=== PATIENT | female | born 1985 | race African-American/Black ===

== ENCOUNTER 2017-05-12 14:12 | Inpatient (IN) | payer OTHER ==
[2017-05-12] MEDS ORDERED: OXYTOCIN 30 UNITS/LR 500 ML IV (15:00)
[2017-05-12] MEDS ORDERED: LIDOCAINE 1% (MPF) 30 ML INJ INJ (15:00)
[2017-05-12] MEDS ORDERED: CARBOPROST 250 MCG INJ IM (15:00)
[2017-05-12] MEDS ORDERED: MISOPROSTOL 200 MCG TAB PR (15:00)
[2017-05-12] MEDS ORDERED: IBUPROFEN 600 MG TAB PO (15:00)
[2017-05-12] MEDS: LACTATED RINGER'S 1,000 ML IV ×3 (15:16→22:53)
[2017-05-12] MEDS: AMPICILLIN 2 GM/NS (PMX) 100 ML IV (15:16)
[2017-05-12 15:43] LABS: ADD MAN DIFF? NO
[2017-05-12 15:45] LABS: WHITE BLOOD COUNT 7.9 10^3/ul (4.8-10.8)
[2017-05-12 15:45] LABS: BASOPHILS % 0.4 % (0.0-2.0); EOSINOPHILS % 0.4 % (0.0-7.0); HEMATOCRIT 34.3 % (37.0-47.0); HEMOGLOBIN 11.5 g/dl (12.0-16.0); LYMPHOCYTES # 2.1 10^3/ul (0.8-2.9); LYMPHOCYTES % 26.5 % (15.0-51.0); MEAN CORPUSCULAR HGB CONC 33.5 g/dl (32.0-37.0); MEAN CORPUSCULAR VOLUME 92.5 fl (82.0-101.0); MEAN PLATELET VOLUME 9.7 fl (7.4-10.4); MONOCYTE # 0.8 10^3/ul (0.3-0.9); MONOCYTES % 9.6 % (0.0-11.0); NEUTROPHIL # 4.9 10^3/ul (1.6-7.5); NEUTROPHILS % 61.3 % (39.0-77.0); PLATELET COUNT 233 10^3/UL (140-415); RED BLOOD COUNT 3.71 10^6/ul (4.20-5.40); RED CELL DISTRIBUTION WIDTH 13.2 % (11.5-14.5)
[2017-05-12 16:06] LABS: INR 0.99; PROTIME 13.2 Sec (11.9-14.9)
[2017-05-12 16:07] LABS: PARTIAL THROMBOPLASTIN TIME 27.3 Sec (25.0-35.0)
[2017-05-12 16:40] LABS: HEPATITIS B SURFACE ANTIGEN NEGATIVE (NEGATIVE)
[2017-05-12 18:49] LABS: AMPHETAMINE/METHAMPHETAMINE Negative (NEGATIVE); BARBITURATES Negative (NEGATIVE); BENZODIAZEPINES Negative (NEGATIVE); CANNABINOIDS Negative (NEGATIVE); COCAINE Negative (NEGATIVE); OPIATES Negative (NEGATIVE)
[2017-05-12] MEDS: AMPICILLIN 1 GM/NS (PMX) 50 ML IV ×2 (19:02→23:10)
[2017-05-12 19:42] LABS: HIV 1&2 ANTIBODY NEGATIVE (NEGATIVE)
[2017-05-12] MEDS: LACTATED RINGER'S 500 ML IV ×3 (19:59→22:53)
[2017-05-12] MEDS: BUTORPHANOL 2 MG INJ IV (23:11)
[2017-05-13] MEDS: LACTATED RINGER'S 500 ML IV (02:53)
[2017-05-13] MEDS: LACTATED RINGER'S 1,000 ML IV ×6 (03:07→21:50)
[2017-05-13] MEDS: AMPICILLIN 1 GM/NS (PMX) 50 ML IV ×6 (03:07→23:00)
[2017-05-13] MEDS: LACTATED RINGER'S 500 ML (05:00)
[2017-05-13] MEDS ORDERED: FENTAnyl 2MCG/ML-ROPIV 0.2% 100 ML (07:47)
[2017-05-13] MEDS: ONDANSETRON 4 MG INJ IV (08:52)
[2017-05-13] MEDS ORDERED: NALOXONE (0.4 MG/ML) INJ IV (09:00)
[2017-05-13] MEDS ORDERED: TRIMETHOBENZAMIDE 100 MG/ML VIAL IM (09:00)
[2017-05-13] MEDS: OXYTOCIN 30 UNITS/LR 500 ML IV ×3 (09:38→22:40)
[2017-05-13 15:19] LABS: RAPID PLASMA REAGIN NONREACTIVE (NR)
[2017-05-13] MEDS: FENTAnyl 2MCG/ML-ROPIV 0.2% 100 ML BAG EPI (15:25)
[2017-05-13] MEDS: DIPHENHYDRAMINE 50 MG INJ IV (15:56)
[2017-05-13] MEDS: METHYLERGONOVINE 0.2 MG INJ IM (22:40)
[2017-05-13] MEDS ORDERED: METHYLERGONOVINE 0.2 MG INJ IM (23:30)
[2017-05-13] MEDS ORDERED: CARBOPROST 250 MCG INJ IM (23:30)
[2017-05-13] MEDS ORDERED: WITCH HAZEL/GLYCERIN PAD PR (23:30)
[2017-05-13] MEDS ORDERED: ONDANSETRON 4 MG INJ IV (23:30)
[2017-05-13] MEDS ORDERED: OXYTOCIN 30 UNITS/LR 500 ML IV (23:30)
[2017-05-13] MEDS ORDERED: ACETAMINOPHEN 325 MG TAB PO (23:30)
[2017-05-13] MEDS ORDERED: OXYCODONE/ASPIRIN (4.88/325) TAB PO (23:30)
[2017-05-13] MEDS ORDERED: LANOLIN 7 GM TUBE TOP (23:30)
[2017-05-13] MEDS ORDERED: SENNA/DOCUSATE NA (8.6MG/50MG) TAB PO (23:30)
[2017-05-13] MEDS ORDERED: BENZOCAINE 20% 56 ML SPRAY TOP (23:30)
[2017-05-13] MEDS ORDERED: DIPHENHYDRAMINE 50 MG INJ IV (23:30)
[2017-05-13] MEDS ORDERED: DIBUCAINE 1% 30 GM OINT PR (23:30)
[2017-05-13] MEDS ORDERED: MISOPROSTOL 200 MCG TAB PR (23:30)
[2017-05-13] MEDS ORDERED: ZOLPIDEM 5 MG TAB PO (23:30)
[2017-05-14] MEDS: LACTATED RINGER'S 500 ML ×7 (01:00→11:10)
[2017-05-14] MEDS: IBUPROFEN 600 MG TAB PO ×5 (01:31→23:41)
[2017-05-14] MEDS: DEXTROSE 5%-LR 1,000 ML IV (01:57)
[2017-05-14] MEDS: OXYTOCIN 30 UNITS/LR 500 ML IV (03:46)
[2017-05-14 08:27] LABS: ADD MAN DIFF? NO
[2017-05-14 08:37] LABS: WHITE BLOOD COUNT 12.7 10^3/ul (4.8-10.8)
[2017-05-14 08:38] LABS: BASOPHILS % 0.2 % (0.0-2.0); EOSINOPHILS % 0.2 % (0.0-7.0); HEMATOCRIT 33.6 % (37.0-47.0); HEMOGLOBIN 11.1 g/dl (12.0-16.0); LYMPHOCYTES # 2.2 10^3/ul (0.8-2.9); LYMPHOCYTES % 17.3 % (15.0-51.0); MEAN CORPUSCULAR HEMOGLOBIN 30.7 pg (29.0-33.0); MEAN CORPUSCULAR VOLUME 93.1 fl (82.0-101.0); MEAN PLATELET VOLUME 9.9 fl (7.4-10.4); MONOCYTE # 1.3 10^3/ul (0.3-0.9); MONOCYTES % 10.1 % (0.0-11.0); NEUTROPHIL # 9.1 10^3/ul (1.6-7.5); NEUTROPHILS % 71.6 % (39.0-77.0); PLATELET COUNT 230 10^3/UL (140-415); RED BLOOD COUNT 3.61 10^6/ul (4.20-5.40); RED CELL DISTRIBUTION WIDTH 12.9 % (11.5-14.5)
[2017-05-14] MEDS: AMPICILLIN 1 GM/NS (PMX) 50 ML IV ×2 (09:05)
[2017-05-14] MEDS: INFLUENZA VIRUS VACCINE 0.5 ML SYG IM* (11:10)
[2017-05-15] MEDS: IBUPROFEN 600 MG TAB PO (06:14)
[2017-05-15] MEDS: DIPHTH/TET/ACEL PERTUSS (ADULT) 0.5 ML VIAL IM* (09:00)
[2017-05-15] MEDS: MEASLES,MUMPS,RUBELLA VACCINE INJ SC* (09:00)
[2017-05-15 11:57] LABS: RUBELLA ANTIBODY - IGG 5.25 index; RUBELLA ANTIBODY - IGM <20.00 AU/mL
== END 2017-05-15 13:52 | disposition home or self-care (01) | DRG 775 ==
LOC: OBT 14:12 → PP1 05-14 00:33 → L-D 14:12 → OBT 14:59 → L-D 15:01
PROVIDERS: Obstetrics & Gynecology
PROC: 10E0XZZ Delivery of Products of Conception, External Approach (ICD-10-PCS; principal; 2017-05-13)
PROC: 10907ZC Drainage of Amniotic Fluid, Therapeutic from Products of Conception, Via Natural or Artificial Opening (ICD-10-PCS; 2017-05-13)
DX: O80 Encounter for full-term uncomplicated delivery (principal); Z37.0 Single live birth; Z3A.39 39 weeks gestation of pregnancy
CPT/HCPCS: 62319; 76815; 80307; 85025; 85610; 85730; 86592; 86703; 86762; 86900; 86901; 87340; 90686; 90715